=== PATIENT | male | born 1990 | race African-American/Black ===

== ENCOUNTER 2020-11-04 02:44 | Emergency (ER) | payer MEDICAID ==
[~2020-11-04] VITALS: Ht 190.5 cm; Wt 91.0 kg
[2020-11-04] MEDS ORDERED: KETOROLAC 30MG/ML VIAL IM ONE (03:15)
[2020-11-04 04:16] VITALS: BP 129/68
== END 2020-11-04 04:17 | disposition home or self-care (01) ==
LOC: ER 02:44
DX: S62.316A Displaced fracture of base of fifth metacarpal bone, right hand, initial encounter for closed fracture (principal); S62.334A Displaced fracture of neck of fourth metacarpal bone, right hand, initial encounter for closed fracture; Y04.8XXA Assault by other bodily force, initial encounter; Y93.89 Activity, other specified; Y92.89 Other specified places as the place of occurrence of the external cause
CPT/HCPCS: 29125; 73100; 73130; 96372; 99284; J1885